=== PATIENT | male | born 1980 | race Caucasian/White ===

== ENCOUNTER 2022-12-26 20:21 | Emergency (ER) | payer SELFPAY ==
[~2022-12-26] VITALS: Ht 182.9 cm; Wt 90.7 kg
--- NOTE | 2022-12-26 20:21 | NUR ---
ARRIVAL PT TO ER 3 VIA WHEELCHAIR WITH MOD DISTRESS, BUT NO ACUTE RESPIRATORY DISTRESS ON RA. PT DIZZY, TREMBLING, DIAPHORETIC AND C/O CHEST TIGHTNESS, NUMB HANDS, AND HITTING HEAD WHEN HE PASSED OUT IN SHOWER. VS AND ASSESSMENT COMPLETE CHARTED. IV STARTED. BLOOD OBTAINED. BLOOD GLUCOSE OBTAINED, RESULT OF 83. EKG OBTAINED.
--- NOTE | 2022-12-26 20:40 | PCM.EKG ---
[facility] Test Date: 2022-12-26 Test Time: 20:31:25 Pat Name: CARMEN RUDD Department: Room: Gender: M [employer] Operator: CG : [id number] Requested By: JUAN ANTONIO LU Order Number: [id number] Reading MD: Darren Lu Measurements Intervals Divide Rate: 77 P: 66 MI: 169 QRS: 11 QRSD: 103 T: 49 QT: 367 QTc: 416 Interpretive Statements Sinus rhythm Borderline low voltage, extremity leads ST elev, probable normal early repol pattern No previous ECG available for comparison Electronically Signed On 12-26-2022 21:34:46 CDT by Darren Lu Please click the below link to view image of tracing.
[2022-12-26 20:46] LABS: BASOPHIL % 0.1 % (0.0-0.2); EOSINOPHIL # 0.1 10^3/uL (0.0-0.2); EOSINOPHIL % 0.6 % (0.0-5.0); LYMPHOCYTES # 3.41 10^3/uL1 (1.0-4.8); LYMPHOCYTES % 34.7 % (24.0-44.0); MEAN CORP HGB 30.7 pg (26-34); MONOCYTES # 0.8 10^3/uL (0.3-0.8); MONOCYTES % 8.6 % (5.0-12.0); NEUTROPHIL # 5.5 10^3/uL (1.8-7.7); NEUTROPHILS % 55.9 % (41.0-85.0); PLATELET COUNT 241 10^3/uL (150-400); RED CELL DISTRIBUTION WIDTH 13.4 % (11.5-14.5)
[2022-12-26] MEDS ORDERED: ASPIRIN ONE (20:48)
[2022-12-26 20:49] VITALS: BP 165/114
--- NOTE | 2022-12-26 20:58 | DIREP ---
PROCEDURE:CHEST 1 VIEW COMPARISON:None. INDICATIONS:cp FINDINGS: LUNGS/PLEURA:No significant pulmonary parenchymal abnormalities. No effusions. No pneumothorax. VASCULATURE:Normal. Unremarkable pulmonary vasculature. CARDIAC:Normal. No cardiac silhouette abnormality or cardiomegaly. MEDIASTINUM:Normal. No visible mass or adenopathy. BONES:Normal. No fracture or visible bony lesion. OTHER:Negative. CONCLUSION:No acute pulmonary process. Dictated by: Lesa Mancuso M.D. on 12/26/2022 at 08:56 PM
[2022-12-26] MEDS ORDERED: ASPIRIN PO PRN (21:00)
--- NOTE | 2022-12-26 21:04 | DIREP ---
PROCEDURE:CT HEAD OR BRAIN W/O CONTRAST COMPARISON:None. INDICATIONS:fall with injury TECHNIQUE:CT images were created without intravenous contrast. FINDINGS: VENTRICLES:The ventricles are normal in size and configuration. CEREBRUM:Normal cerebral morphology with appropriate torres white matter differentiation. CEREBELLUM:Negative. BRAINSTEM:Negative. BASAL CISTERNS:Negative. HEMORRHAGE (Vol L*W*H*.52):No MASS LESION:No ACUTE INFARCT:No SKULL:Normal. SINUSES:Normal. OTHER:None CONCLUSION:No acute intracranial process Dictated by: Lesa Mancuso M.D. on 12/26/2022 at 09:02 PM
[2022-12-26 21:06] LABS: CARBON DIOXIDE 29.7 mmol/L (20.0-32)
[2022-12-26] MEDS ORDERED: TORADOL IV STA (21:16)
--- NOTE | 2022-12-26 21:21 | ER.PDOC ---
General Chief Complaint: Chest Pain-Cardiac Nature Stated Complaint: PASSED OUT,CHEST PAIN Time seen by MD: 20:20 Source: patient Exam Limitations: no limitations History of Present Illness Initial Comments Patient is a 42-year-old male with past medical history of asthma and a heart attack who comes in after he passed out in the shower earlier and has some mild Chest tightness and states that he hit his head. Patient states that he was not feeling well so he took a hot shower he says in the hot shower he felt wheezy and then all of a sudden passed out. States he woke up with the water in the shower running on him. He states since he woke up he had some mild chest tightness some weird numbness all over his body and he did hit his head and was feeling shaky. Does not know what makes his symptoms better or worse. Denies any other symptoms or concerns Past Medical History Medical History: asthma, cardiac problems Surgical History: other Family History Significant Family History: no pertinent family hx Social History Smoking: greater than 1 pack/day Alcohol Use: none Drug Use: none Reviewed Nursing Reviewed: Vital Signs, Abn. Noted, Nursing Assessment Review of Systems Constitutional: no symptoms reported EENTM: no symptoms reported Respiratory: no symptoms reported Cardiovascular: chest pain, syncope Gastrointestinal: no symptoms reported Genitourinary: no symptoms reported Skin: no symptoms reported Psychiatric/Neurological: paresthesia Physical Exam General Appearance: No Apparent Distress, WD/WN HEENT: PERRL/EOMI, Normal ENT Inspection, TMs Normal, Pharynx Normal Neck: Non-Tender, Full Range of Motion, Supple, Normal Inspection Cardiovascular/Respiratory: Regular Rate, Rhythm, No M/R/G, Normal Peripheral Pulses, No JVD, Normal Breath Sounds, No Respiratory Distress Gastrointestinal: Normal Bowel Sounds, No Organomegaly, No Pulsatile Mass, Non Tender, Soft Extremities: Normal Range of Motion, Non-Tender, Normal Inspection, No Pedal Edema, No Calf Tenderness, Normal Capillary Refill Psychiatric: Alert, Oriented x 3 Cranial Nerves: Normal Hearing, Normal Speech, PERRL Coordination/Gait: Normal Finger to Nose, Normal Gait, Negative Romberg's Sign Motor/Sensory: No Motor Deficit, No Sensory Deficit, No Pronator Drift, Negative Babinski's Sign Skin: Normal Color, Warm/Dry Lymphatic: No Adenopathy Results/Orders Results/Orders Orders - JUAN ANTONIO MCCANN MD EKG (12/26/22 20:37) Xr Chest 1v (12/26/22 20:37) Cbc With Auto Diff (12/26/22 20:37) Comprehensive Metabolic Panel (12/26/22 20:37) PT (12/26/22 20:37) Partial Thromboplastin Time. (12/26/22 20:37) Aspirin (Aspirin) (12/26/22 21:00) Saline Lock (12/26/22 20:37) Troponin I High Sensitivity (12/26/22 20:37) Ct Head Wo Contrast (12/26/22 20:37) Aspirin (Aspirin) (12/26/22 20:48) Vital Signs Date Time Temp Pulse Resp B/P (MAP) Pulse Ox O2 Delivery O2 Flow Rate FiO2 12/26/22 20:49 98.2 84 20 165/114 (131) 96 Room Air* 0 21 12/26/22 20:49 98.2 84 20 96 12/26/22 20:49 98.2 84 20 Administered Medications Medications (Trade) Dose Ordered Sig/Macarena Route PRN Reason Start Time Stop Time Status Last Admin Dose Admin Aspirin (Aspirin) 325 mg DAILY PRN PO CHEST PAIN 12/26/22 21:00 01/25/23 20:59 12/26/22 20:48 325 MG Laboratory Tests Test 12/26/22 20:25 12/26/22 20:31 White Blood Count 9.8 10^3/uL (4.5-11.0) Red Blood Count 5.90 10^6/uL (4.50-5.90) Hemoglobin 18.1 g/dL (13.9-16.3) H Hematocrit 52.8 % (37.0-53.0) Mean Corpuscular Volume 89.5 fL (78-100) Mean Corpuscular Hemoglobin 30.7 pg (26-34) Mean Corpuscular Hemoglobin Concent 34.3 g/dL (33-36.5) Red Cell Distribution Width 13.4 % (11.5-14.5) Platelet Count 241 10^3/uL (150-400) Mean Platelet Volume 9.5 fL (7.8-11.0) Neutrophils (%) (Auto) 55.9 % (41.0-85.0) Lymphocytes (%) (Auto) 34.7 % (24.0-44.0) Monocytes (%) (Auto) 8.6 % (5.0-12.0) Neutrophils # (Auto) 5.5 10^3/uL (1.8-7.7) Lymphocytes # (Auto) 3.41 10^3/uL1 (1.0-4.8) Monocytes # (Auto) 0.8 10^3/uL (0.3-0.8) Absolute Immature Granulocyte (auto 0.01 10^3 u/L (0-2) Absolute Eosinophils (auto) 0.1 10^3/uL (0.0-0.2) Immature Granulocytes % 0.10 % (0.00-0.50) Eosinophils % 0.6 % (0.0-5.0) Basophils % 0.1 % (0.0-0.2) Basophils # 0.0 10^3/uL (0.0-0.1) Prothrombin Time 9.5 SEC (9.1-11.5) INR 0.9 Activated Partial Thromboplast Time 24.9 SEC (22.5-33.1) Sodium Level 147 mmol/L (132-145) H Potassium Level 3.4 mmol/L (3.6-5.2) L Chloride Level 107.0 mmol/L (96-109) Carbon Dioxide Level 29.7 mmol/L (20.0-32) Anion Gap 13.7 Blood Urea Nitrogen 10 mg/dL (7-18) Creatinine 1.06 mg/dL (0.59-1.40) Estimated GFR () 91.8 (>/=60) Est GFR (CKD-EPI)(Non-Afr Sen[place]e) 75.9 (>/=60) BUN/Creatinine Ratio 9.0 (10.0-20.0) L Glucose Level 86 mg/dL (70-110) Calcium Level 9.0 mg/dL (8.4-10.5) Total Bilirubin 0.4 mg/dL (0.2-1.0) Aspartate Amino Transferase (AST) 22 U/L (0-35) Alanine Aminotransferase (ALT) 24 U/L (12-78) Alkaline Phosphatase 57 U/L (50-136) Troponin I High Sensitivity 9 ng/L (0-75) Total Protein 7.3 g/dL (6.4-8.2) Albumin 4.2 g/dL (3.4-5.0) Globulin 3.1 Albumin/Globulin Ratio 1.354 POC Glucose 83 (70 - 110) Progress Progress Patient here after syncopal event with chest tightness we will do head CT chest x-ray EKGs labs and continue to monitor. My interpretation of patient's work-up is as follows coagulation factors all within normal limits looking at the head CT nothing acute per my independent interpretation radiology later agreed. Patient's chemistry everything within normal limits including troponin. Looking at patient's chest x-ray I see nothing acute radiology later agreed with my independent interpretation looking patient's EKG my independent interpretation shows a heart rate of 77 sinus rhythm QTc of 416 and no STEMI present you can find more information on the computer readout. Patient's CBC shows an elevated hemoglobin consistent with patient's smoking history. [id number] states that other than his headache he feels better we will go ahead and give him ketorolac for that he voiced understanding when to follow-up and when to return to the ER. We will have patient follow-up with his primary care provider as well as his route service representative his heart score is 3 and [place] syncope score is low we will go ahead and discharge patient. ER DEPARTURE Departure Time of Disposition: 21:20 Disposition: 01 HOME / SELF CARE / HOMELESS Impression: Primary Impression: Syncope Condition: Improved Patient Instructions: Syncope Referrals: PCP,UNKNOWN (PCP) PRIMARY CARE PROVIDER Additional Instructions: Follow-up with your primary care provider within the next week. If you have any new persistent or worsening symptoms or concerns seek medical attention. As we discussed you also need to follow-up with a route service representative. Duration or Time Spent with Pa: 35 Justification of Admit/Observ Is this patient coming directl: No *Level of Care/Services Provid: ER Admit Criteria Met: NO Justification Content JUSTIFICATION FOR ADMISSION Instructions 1. Open link in [employer] Browser. [email or web address] 2. Copy and paste data needed to meet the Admit Criteria. 3. Modify and document the needful data to meet the Admit Criteria. Problem Qualifiers Primary Impression: Syncope Syncope type: unspecified Qualified Codes: R55 - Syncope and collapse JUAN ANTONIO MCCANN MD Dec 26, 2022 21:21
[2022-12-26] MEDS ORDERED: TORADOL ONE (21:30)
[2022-12-26 21:36] VITALS: BP 154/95
== END 2022-12-26 21:36 | disposition home or self-care (01) ==
LOC: ER 20:21
DX: R55 Syncope and collapse (principal); R07.89 Other chest pain; J45.909 Unspecified asthma, uncomplicated; I25.2 Old myocardial infarction; F17.210 Nicotine dependence, cigarettes, uncomplicated
CPT/HCPCS: 99285; 96374; 70450; 71045; 80053; 85025; 82948; 36415; 84484; 85610; 85730; 93005; J1885